=== PATIENT | female | born 1955 | race Caucasian/White ===

== ENCOUNTER 2023-11-12 09:58 | Emergency (ER) | payer BC, OTHER ==
[2023-11-12 10:04] VITALS: RESP 18; BMI 37.0
[2023-11-12 11:00] LABS: BASO % 0.4 % (0-2.0); EOS % 1.2 % (0-4.5); HEMATOCRIT 39.1 % (32.4-45.2); HEMOGLOBIN 13.5 GM/dL (10.7-15.3); LYMPH % 44.7 % (8-40); MCH 28.8 pg (25.7-33.7); MCHC 34.5 g/dl (32.0-36.0); MEAN CELL VOLUME 83.5 fl (80-96); MEAN PLT VOLUME 8.3 fl (7.5-11.1); MONO % 5.1 % (3.8-10.2); NEUT % 48.6 % (42.8-82.8); PLATELET COUNT 239 10^3/uL (134-434); RBC 4.68 M/mm3 (3.60-5.2); RDW 14.9 % (11.6-15.6); WHITE BLOOD COUNT 6.7 K/mm3 (4.0-10.0)
[2023-11-12 11:18] LABS: POTASSIUM 4.3 mmol/L (3.5-5.1)
[2023-11-12 11:21] LABS: BLOOD UREA NITROGEN 12.9 mg/dL (7-18)
[2023-11-12 11:23] LABS: ALBUMIN 4.1 g/dl (3.4-5.0)
[2023-11-12 11:24] LABS: CALCIUM 9.8 mg/dL (8.5-10.1)
[2023-11-12 11:27] LABS: CREATININE 0.8 mg/dL (0.55-1.3)
[2023-11-12 11:28] LABS: BILIRUBIN,TOTAL 0.4 mg/dL (0.2-1); TOT PROT 7.9 g/dl (6.4-8.2)
[2023-11-12 11:34] LABS: N-TERMINAL BNP 45.8 pg/ml (5-125)
[2023-11-12 16:36] VITALS: BP 139/75; PULSE 71; TEMP 97.6
== END 2023-11-12 16:38 | disposition home or self-care (01) ==
LOC: JER 09:58
DX: R06.02 Shortness of breath (principal); R42 Dizziness and giddiness; R05.3 Chronic cough
CPT/HCPCS: 36415; 71045-TC-FY; 71250-TC; 80053; 83880; 84484; 85025; 85379; 93005; 93010; 93308; 99285-25